=== PATIENT | male | born 2000 | race African-American/Black ===

== ENCOUNTER 2023-11-24 05:52 | Emergency (ER) | payer SELFPAY ==
[2023-11-24] MEDS ORDERED: ONDANSETRON 4 MG/2 ML VIAL ONE (06:04)
[2023-11-24] MEDS ORDERED: CEFTRIAXONE 1000 MG/VIAL ONE (06:04)
[2023-11-24] MEDS ORDERED: AZITHROMYCIN 250 MG TAB ONE (06:05)
[2023-11-24] MEDS ORDERED: KETOROLAC 30 MG/ML INJ ONE (06:05)
[2023-11-24] MEDS ORDERED: NA CHLORIDE 0.9% 1,000 ML ONE (06:05)
[2023-11-24 06:24] LABS: Absolute Eosinophils 0.1 K/uL (0-0.5); Absolute Lymphocytes (CBC) 2.1 K/uL (0.7-4.9); Absolute Monocytes 0.6 K/uL (0.1-1.3); Absolute Neutrophil 4.2 K/uL (1.8-8.0); Basophils % 0.6 % (0-1.3); Eosinophils % 1.6 % (0-4.4); Hematocrit 45.4 % (39.6-49.0); Hemoglobin 15.1 g/dL (13.6-17.9); Lymphocytes % 29.9 % (15.3-44.8); MCH 29.9 pg (27.0-35.0); MCHC 33.4 g/dL (32.0-36.0); MCV 89.7 fL (80-100); Neutrophils % 58.9 % (41.7-73.7); Nucleated Red Blood Cells % 0.1 % (0-0); Platelets 285 thou/uL (152-406); RBC Red Blood Cell Count 5.06 M/uL (4.33-5.43); Red Cell Distribution Width 12.6 % (12.1-15.2)
[2023-11-24 06:41] LABS: Albumin 4.1 g/dL (3.4-5.0); Albumin/Globulin Ratio 1.2 (1.1-1.8); Anion Gap 11.2 mEq/L (5.0-15.0); Bilirubin Total 0.4 mg/dL (0.2-1.0); Globulin 3.4 g/dL (2.3-3.5); Potassium 3.2 mEq/L (3.5-5.1); Protein, Total 7.5 g/dL (6.4-8.2)
[2023-11-24 07:20] LABS: Specific Gravity 1.008 (1.005-1.030); Sqamous Epithelial None Seen /HPF (None Seen); Urine Bacteria None Seen /HPF (<20); Urine Bilirubin NEGATIVE (Negative); Urine Blood Negative (Negative); Urine Clarity Clear (Clear); Urine Color Colorless (Yellow); Urine Culture Reflex Order NOT NEEDED; Urine Glucose NEGATIVE (Negative); Urine Ketones NEGATIVE (Negative); Urine Microscopic Reflex YN ORDER UMIC; Urine Nitrite NEGATIVE (Negative); Urine Protein NEGATIVE (Negative); Urine RBC <5 /HPF (None Seen); Urine Urobilinogen Normal (Normal); Urine WBC None Seen /HPF (<5)
--- NOTE | 2023-11-24 07:25 | RAD REPORT ---
EXAM DESCRIPTION: US - Scrotum Testicles - 11/24/2023 7:04 am CLINICAL HISTORY: Testicular pain COMPARISON: None FINDINGS: Right testicle measures 4.5 x 2.3 x 3.2 centimeters. Echotexture is homogeneous. Normal bl ood flow Left testicle measures 4.2 x 2.3 x 4.2 centimeters. Echotexture is homogeneous. Normal blood flow The epididymides are normal in size and echotexture. Normal blood flow is seen. IMPRESSION: Unremarkable exam
--- NOTE | 2023-11-24 07:30 | EDPHYS ---
Physician Documentation [facility] Name: Teressa Torres Age: 23 yrs Sex: Male : 2000 Arrival Date: 11/24/2023 Time: 05:52 Bed 7 Private MD: ED Physician Todd Gross HPI: 11/23 06:01 This 23 yrs old Black Male presents to ER via EMS with complaints of right testicle alicia pain, 3 months. 06:01 The patient presents with scrotal pain, of the right side, swelling. Onset: The alicia symptoms/episode began/occurred 90 day(s) ago. Modifying factors: The symptoms are alleviated by nothing, the symptoms are aggravated by nothing. Associated signs and symptoms: The patient has no apparent associated signs or symptoms. Severity of symptoms: At their worst the symptoms were mild, in the emergency department the symptoms are unchanged. The patient has experienced similar episodes in the past, multiple times. Historical: - Allergies: 05:57 Iodine; bm8 - Home Meds: 05:57 None [Active]; bm8 - PMHx: 05:57 None; bm8 - PSHx: 05:57 cyst removal on throat; bm8 - Immunization history:: Adult Immunizations up to date. - Infectious Disease History:: Denies. - Social history:: Smoking status: Patient denies any tobacco usage or history of. ROS: 06:05 Constitutional: Negative for fever, chills, and weight loss, Eyes: Negative for injury, alicia pain, redness, and discharge, ENT: Negative for injury, pain, and discharge, Neck: Negative for injury, pain, and swelling, Cardiovascular: Negative for chest pain, palpitations, and edema, Respiratory: Negative for shortness of breath, cough, wheezing, and pleuritic chest pain, Abdomen/GI: Negative for abdominal pain, nausea, vomiting, diarrhea, and constipation, Back: Negative for injury and pain, MS/Extremity: Negative for injury and deformity, Skin: Negative for injury, rash, and discoloration, Neuro: Negative for headache, weakness, numbness, tingling, and seizure, Psych: Negative for depression, anxiety, suicide ideation, homicidal ideation, and hallucinations, Allergy/Immunology: Negative for hives, rash, and allergies, Endocrine: Negative for neck swelling, polydipsia, polyuria, polyphagia, and marked weight changes, Hematologic/Lymphatic: Negative for swollen nodes, abnormal bleeding, and unusual bruising, 06:05 : Positive for testicular pain of the right testicle, Exam: 06:05 Constitutional: This is a well developed, well nourished patient who is awake, alert, alicia and in no acute distress. Head/Face: Normocephalic, atraumatic. Eyes: Pupils equal round and reactive to light, extra-ocular motions intact. Lids and lashes normal. Conjunctiva and sclera are non-icteric and not injected. Cornea within normal limits. Periorbital areas with no swelling, redness, or edema. ENT: Nares patent. No nasal discharge, no septal abnormalities noted. Tympanic membranes are normal and external auditory canals are clear. Oropharynx with no redness, swelling, or masses, exudates, or evidence of obstruction, uvula midline. Mucous membranes moist. Neck: Trachea midline, no thyromegaly or masses palpated, and no cervical lymphadenopathy. Supple, full range of motion without nuchal rigidity, or vertebral point tenderness. No Meningismus. Chest/axilla: Normal chest wall appearance and motion. Nontender with no deformity. No lesions are appreciated. Cardiovascular: Regular rate and rhythm with a normal S1 and S2. No gallops, murmurs, or rubs. Normal PMI, no JVD. No pulse deficits. Respiratory: Lungs have equal breath sounds bilaterally, clear to auscultation and percussion. No rales, rhonchi or wheezes noted. No increased work of breathing, no retractions or nasal flaring. Abdomen/GI: Soft, non-tender, with normal bowel sounds. No distension or tympany. No guarding or rebound. No evidence of tenderness throughout. Back: No spinal tenderness. No costovertebral tenderness. Full range of motion. Skin: Warm, dry with normal turgor. Normal color with no rashes, no lesions, and no evidence of cellulitis. MS/ Extremity: Pulses equal, no cyanosis. Neurovascular intact. Full, normal range of motion. Neuro: Awake and alert, GCS 15, oriented to person, place, time, and situation. Cranial nerves II-XII grossly intact. Motor strength 5/5 in all extremities. Sensory grossly intact. Cerebellar exam normal. Normal gait. Psych: Awake, alert, with orientation to person, place and time. Behavior, mood, and affect are within normal limits. 06:05 : CVA tenderness, is absent, Male external genitalia: Patient is not circumisioned. Bladder: is normal, Sexual behavior: the patient is sexually active, and reports a single partner, Vital Signs: 05:54 BP 146 / 90; Pulse 81; Resp 17; Temp 98.4; Pulse Ox 100% on R/A; Pain 7/10; bm8 05:57 Weight 76.2 kg; Height 5 ft. 10 in. ; Pain 7/10; bm8 08:05 BP 126 / 77; Pulse 76; Resp 16; Temp 97.4; Pulse Ox 100% ; Pain 5/10; ll1 05:57 Body Mass Index 24.11 (76.20 kg, 177.8 cm) bm8 05:54 Pain Scale: Adult bm8 05:57 Pain Scale: Adult bm8 08:05 Pain Scale: Adult ll1 Scooter Coma Score: 06:01 Eye Response: spontaneous(4). Motor Response: obeys commands(6). Verbal Response: bm8 oriented(5). Total: 15. MDM: 05:53 Patient medically screened. alicia 06:06 Differential diagnosis: nonspecific abdominal pain, UTI, prostatitis, urethritis. Data alicia reviewed: vital signs, nurses notes, lab test result(s), radiologic studies, ultrasound. Consideration of Admission/Observation Escalation of care including admission/observation considered. I considered the following discharge prescriptions or medication management in the emergency department Medications were administered in the Emergency Department. See MAR. Test considered but Not performed: CT: no ct abd/pelvis. Historians other than the Patient: EMS: ems well informed. Care significantly affected by the following chronic conditions: none. Counseling: I had a detailed discussion with the patient and/or guardian regarding the historical points, exam findings, and any diagnostic results supporting the discharge/admit diagnosis, lab results, the need for outpatient follow up, for definitive care, a family practitioner, a urologist. 11/23 05:58 Order name: CBC with Diff; Complete Time: 07:34 [facility] 11/23 05:58 Order name: Comprehensive Metabolic Panel; Complete Time: 07:34 [facility] 11/23 05:58 Order name: Urinalysis w/ reflexes; Complete Time: 07:34 [facility] 11/23 05:58 Order name: US Scrotum Testicles; Complete Time: 07:34 alicia 11/23 07:35 Order name: PO challenge: juice; Complete Time: 07:51 alicia Administered Medications: 06:14 Drug: NS 0.9% IV 1000 ml IV at 1 bolus Per protocol; 1000 mL bolus Route: IV; Rate: 1 bm8 bolus; Site: right forearm; 08:30 Follow up: Response: No adverse reaction; IV Status: Completed infusion; IV Intake: ll1 1000ml 06:14 Drug: Ketorolac IVP 30 mg IVP once Route: IVP; Site: right forearm; bm8 08:31 Follow up: Response: No adverse reaction ll1 06:14 Drug: Ondansetron IVP 4 mg IVP once; over 2 minutes Route: IVP; Site: right forearm; bm8 08:31 Follow up: Response: No adverse reaction ll1 07:20 Drug: Rocephin IV 1 grams IV at per protocol once; Given slow IV push per pharmacy rs5 instructions Route: IV; Rate: per protocol; Site: left antecubital; 08:31 Follow up: Response: No adverse reaction; IV Status: Completed infusion; IV Intake: ll1 100ml 07:20 Drug: AZITHromycin PO 1 grams PO once Route: PO; rs5 08:31 Follow up: Response: No adverse reaction ll1 Disposition Summary: 11/24/23 07:29 Discharge Ordered Notes: Location: Home alicia Problem: new alicia Symptoms: have improved alicia Condition: Stable alicia Diagnosis - Right testicular pain alicia Followup: alicia - With: Private Physician - When: 2 - 3 days - Reason: Recheck today's complaints, Continuance of care, Re-evaluation by your physician Followup: alicia - With: Ethan Franklin MD - When: 2 - 3 days - Reason: Recheck today's complaints, Re-evaluation by your physician Discharge Instructions: - Discharge Summary Sheet alicia - Testicular Self-Exam alicia - Varicocele alicia - Testicular Self-Exam, [id number] alicia Forms: - Medication Reconciliation Form alicia - Antibiotic Education alicia - Prescription Opioid Use alicia - Patient Portal Instructions alicia - Leadership Thank You Letter alicia - Work release form iw Prescriptions: - Ibuprofen 600 mg Oral Tablet - take 1 tablet ORAL route every 6 hours As needed take with food; 30 tablet; [facility] Refills: 0, Product Selection Permitted - Doxycycline Hyclate 100 mg Oral Tablet - take 1 tablet ORAL route every 12 hours; 20 tablet; Refills: 0, Product alicia Selection Permitted Signatures: Dispatcher [employer] EDTodd Mtz MD MD cha Sotelo, Ricky, RN RN rs5 Kavon Cano RN RN bm8 Twyla Urbina RN ll1 Corrections: (The following items were deleted from the chart) 05:59 05:59 CBC+H.LAB.BRZ ordered. EDMS EDMS 05:59 05:59 COMPREHENSIVE METABOLIC PANEL+C.LAB.BRZ ordered. EDMS EDMS 05:59 05:59 Urinalysis+U.LAB.BRZ ordered. EDMS EDMS 05:59 05:59 Scrotum Testicles+US.RAD.BRZ ordered. EDMS EDMS
--- NOTE | 2023-11-24 07:30 | ER ---
Nurse's Notes [facility] Name: Teressa Torres Age: 23 yrs Sex: Male : 2000 Arrival Date: 11/24/2023 Time: 05:52 Bed 7 Private MD: Diagnosis: Right testicular pain Presentation: 11/23 05:54 Chief complaint: Patient states: 2-3 months of pain in the right testicle. Coronavirus bm8 screen: At this time, the client does not indicate any symptoms associated with coronavirus-19. Ebola Screen: Patient negative for fever greater than or equal to 101.5 degrees Fahrenheit, and additional compatible Ebola Virus Disease symptoms Patient denies exposure to infectious person. Patient denies travel to an Ebola-affected area in the 21 days before illness onset. No symptoms or risks identified at this time. Initial Sepsis Screen: Does the patient meet any 2 criteria? No. Patient's initial sepsis screen is negative. Does the patient have a suspected source of infection? No. Patient's initial sepsis screen is negative. Risk Assessment: Do you want to hurt yourself or someone else? Patient reports no desire to harm self or others. Onset of symptoms was September 25, 2023 at 08:00. 05:54 Method Of Arrival: EMS: [facility] bm8 05:54 Acuity: JANNIE 3 bm8 Triage Assessment: 05:57 General: Appears in no apparent distress. comfortable, Behavior is calm, cooperative, bm8 appropriate for age. Pain: Complains of pain in right testicle Pain radiates to right groin Pain currently is 7 out of 10 on a pain scale. Quality of pain is described as "tight" Pain began. EENT: No deficits noted. No signs and/or symptoms were reported regarding the EENT system. Neuro: No deficits noted. Level of Consciousness is awake, alert, obeys commands, Oriented to person, place, time, situation, Appropriate for age. Cardiovascular: No deficits noted. Capillary refill < 3 seconds Patient's skin is warm and dry. Respiratory: No deficits noted. Airway is patent Trachea midline Respiratory effort is even, unlabored, Respiratory pattern is regular, symmetrical. GI: No deficits noted. No signs and/or symptoms were reported involving the gastrointestinal system. : Urine is clear, Genitalia appear normal Reports pain in right testicle that began 2-3 months ago, described as a tight feeling. Historical: - Allergies: 05:57 Iodine; bm8 - Home Meds: 05:57 None [Active]; bm8 - PMHx: 05:57 None; bm8 - PSHx: 05:57 cyst removal on throat; bm8 - Immunization history:: Adult Immunizations up to date. - Infectious Disease History:: Denies. - Social history:: Smoking status: Patient denies any tobacco usage or history of. Screenin:01 [facility] ED Fall Risk Assessment (Adult) History of falling in the last 3 months, bm8 including since admission No falls in past 3 months (0 pts) Confusion or Disorientation No (0 pts) Intoxicated or Sedated No (0 pts) Impaired Gait No (0 pts) Mobility Assist Device Used No (0 pt) Altered Elimination No (0 pt) Score/Fall Risk Level 0 - 2 = Low Risk Oriented to surroundings, Maintained a safe environment, Educated pt \\T\\ family on fall prevention, incl call for assistance when getting out of bed. Abuse screen: Denies threats or abuse. Nutritional screening: No deficits noted. Tuberculosis screening: No symptoms or risk factors identified. Assessment: 06:01 Reassessment: see triage note. bm8 07:10 Reassessment: No changes from previously documented assessment. Patient and/or family ll1 updated on plan of care and expected duration. Pain level reassessed. Patient is alert, oriented x 3, equal unlabored respirations, skin warm/dry/pink. 08:00 General: Appears in no apparent distress. Behavior is calm, cooperative, appropriate ll1 for age. Pain: Complains of pain in right testicle Pain currently is 5 out of 10 on a pain scale. : Reports pain Scrotal pain: sudden onset. Vital Signs: 05:54 BP 146 / 90; Pulse 81; Resp 17; Temp 98.4; Pulse Ox 100% on R/A; Pain 7/10; bm8 05:57 Weight 76.2 kg; Height 5 ft. 10 in. ; Pain 7/10; bm8 08:05 BP 126 / 77; Pulse 76; Resp 16; Temp 97.4; Pulse Ox 100% ; Pain 5/10; ll1 05:57 Body Mass Index 24.11 (76.20 kg, 177.8 cm) bm8 05:54 Pain Scale: Adult bm8 05:57 Pain Scale: Adult bm8 08:05 Pain Scale: Adult ll1 Morrow Coma Score: 06:01 Eye Response: spontaneous(4). Motor Response: obeys commands(6). Verbal Response: bm8 oriented(5). Total: 15. ED Course: 05:53 Patient arrived in ED. cm10 05:53 Todd Gross MD is Attending Physician. alicia 05:54 Kavon Cano, RN is Primary Nurse. bm8 05:57 Triage completed. bm8 05:57 Arm band placed on left wrist. Urine obtained. Labs ordered per protocol. Drawn by ED bm8 staff. 06:01 Patient has correct armband on for positive identification. Placed in gown. Bed in low bm8 position. Call light in reach. Side rails up X 1. Pulse ox on. NIBP on. Door closed. Noise minimized. Warm blanket given. 06:01 No provider procedures requiring assistance completed. Inserted saline lock: 22 gauge bm8 in right forearm, using aseptic technique. Blood collected. 07:01 Report given to paulino ricks. bm8 07:04 Primary Nurse role handed off by Kavon Cano, RN ll1 07:04 Twyla Urbina RN is Primary Nurse. ll1 07:05 US Scrotum Testicles In Process Unspecified. EDMS 07:10 Urine collected: clean catch specimen, clear, Amount Voided: 350mL. ll1 07:29 Ethan Franklin MD is Referral Physician. alicia 08:05 IV discontinued, intact, bleeding controlled, No redness/swelling at site. Pressure ll1 dressing applied. 08:30 Provided Education on: finish all prescribed antibiotics, verbalized understanding. . ll1 Administered Medications: 06:14 Drug: NS 0.9% IV 1000 ml IV at 1 bolus Per protocol; 1000 mL bolus Route: IV; Rate: 1 bm8 bolus; Site: right forearm; 08:30 Follow up: Response: No adverse reaction; IV Status: Completed infusion; IV Intake: ll1 1000ml 06:14 Drug: Ketorolac IVP 30 mg IVP once Route: IVP; Site: right forearm; bm8 08:31 Follow up: Response: No adverse reaction ll1 06:14 Drug: Ondansetron IVP 4 mg IVP once; over 2 minutes Route: IVP; Site: right forearm; bm8 08:31 Follow up: Response: No adverse reaction ll1 07:20 Drug: Rocephin IV 1 grams IV at per protocol once; Given slow IV push per pharmacy rs5 instructions Route: IV; Rate: per protocol; Site: left antecubital; 08:31 Follow up: Response: No adverse reaction; IV Status: Completed infusion; IV Intake: ll1 100ml 07:20 Drug: AZITHromycin PO 1 grams PO once Route: PO; rs5 08:31 Follow up: Response: No adverse reaction ll1 Medication: 06:01 VIS not applicable for this client. bm8 Intake: 08:30 IV: 1000ml; Total: 1000ml. ll1 08:31 IV: 100ml; Total: 1100ml. ll1 Outcome: 07:29 Discharge ordered by . alicia 08:09 Patient left the ED. bd 08:09 Discharged to home ambulatory, ll1 08:09 Condition: stable 08:09 Discharge instructions given to patient, Instructed on discharge instructions, follow up and referral plans. medication usage, Demonstrated understanding of instructions, follow-up care, medications, Prescriptions given X 2, Signatures: Dispatcher [employer] EDMS Tonya Aleman Corey, MD MD cha Lewis, Lynsay, RN RN ll1 Ariel Bucio RN RN rs5 Vianey Desir, PAULINO RN cm10 Kavon Cano RN RN bm8 Corrections: (The following items were deleted from the chart) 06:15 06:01 No provider procedures requiring assistance completed. bm8 bm8 06:15 06:01 Inserted saline lock: 22 gauge in left forearm, using aseptic technique. Blood bm8 collected. bm8
[2023-11-24 08:38] VITALS: BP 146/90; TEMP 98.4; O2SAT 100
== END 2023-11-24 08:09 | disposition home or self-care (01) ==
LOC: ER 05:52
DX: N50.811 Right testicular pain (principal); Z91.048 Other nonmedicinal substance allergy status
CPT/HCPCS: 36415; 76870; 80053; 81001; 85025; 96361; 96365; 96375; 99285; J0696; J2405; J7030